=== PATIENT | female | born 1945 | race African-American/Black ===

== ENCOUNTER 2023-06-22 04:27 | Day surgery (SDC) | payer OTHER, MEDICARE ==
[2023-06-21 08:53] VITALS: BMI 29.4
[2023-06-22 09:58] VITALS: TEMP 98.7
[2023-06-22 10:10] VITALS: RESP 18
[2023-06-22 10:39] VITALS: BP 126/69; PULSE 59
== END 2023-06-22 10:42 | disposition home or self-care (01) ==
LOC: JASU-ENDO 04:27
PROVIDERS: ATTEND Internal Medicine Gastroenterology
PROC: 0DJD8ZZ Inspection of Lower Intestinal Tract, Via Natural or Artificial Opening Endoscopic (ICD-10-PCS; principal; 2023-06-22 09:00)
DX: Z12.11 Encounter for screening for malignant neoplasm of colon (principal); Z80.0 Family history of malignant neoplasm of digestive organs